=== PATIENT | male | born 1940 | race Caucasian/White ===

== ENCOUNTER 2018-05-19 08:36 | Day surgery (SDC) | payer OTHER ==
[2018-05-18 12:43] VITALS: BMI 30.9
--- NOTE | 2018-05-18 15:56 | HP ---
- Patient Scheduled date of Surgery: 05/19/18 Scheduled Surgical Procedure: Phacoemulsification and cataract extraction with PCIOL Affected Eye: Right Chief Complaint (Indication for surgery): Decreased vision affecting ADLs, Glare when driving at night - Ocular History Other Eye History: Other (none) Eye Medications: vigamox - Medical History Illnesses: Cardiac Disorders (Chest pain, SOB, NV, Valve disease) (s/p stent), Hypertension, Hypercholesterolemia Current Medications: Ambulatory Orders Aspirin 81 mg PO DAILY 05/18/18 Hydrochlorothiazide 25 mg PO DAILY 05/18/18 Metoprolol Succinate [Toprol Xl -] 50 mg PO DAILY 05/18/18 Quinapril HCl 20 mg PO DAILY 05/18/18 Rosuvastatin [Crestor -] 20 mg PO DAILY 05/18/18 Allergies/Adverse Reactions: Allergies Allergy/AdvReac Type Severity Reaction Status Date / Time codeine Allergy Verified 05/18/18 12:43 Ocular Examination - Best Corrected Visual Acuity Distance: Right eye: 20/40 Distance: Left eye: 20/50 - External/Slit Lamp Examination Abnormalities: pingueculum - Intraocular Pressure Intraocular Pressure - Right eye: 18 Intraocular Pressure-Left eye: 16 - Lens Lens: 3+ ns - Vitreous/Retina Vitreous/Retina: c:d: 0.15 m/v/p wnl - Special Examination M - Right eye: -1.00-2.00 x90 M - Left eye: -0.50- 1.00 x90 K - Right eye: 44.5/47.75 x 176 K - Left eye: 46.25/47.005 x005 AL - Right eye: 22.67 AL - Left eye: 21.87 IOL ba.00 IOL sulcus: 20.0 IOL AC: 17.0 - Impression Impression: Cataract Right Eye - Plan Plan: Phacoemulsification and cataract extraction - IOL Right eye Post-hospital care will be provided in office on: 05/20/18
[~2018-05-19 08:36] MED LIST: CIPROFLOXACIN HCL 0.3% OPHTH 2.5ML BOTTLE OP SCH; KETOROLAC TROMETHAMINE 0.5% EYE DROP 1 DROP DROPS OP SCH; PHENYLEPHRINE 2.5% OPHTH SOLN 15 ML BOTTLE OP SCH; TOBRAMYCIN/DEXAMETHASONE OPHTH. OINTMENT 1 TUBE TP ONE; TROPICAMIDE 1% OPHTH SOLN 15 ML BOTTLE OP SCH
[2018-05-19] MEDS ORDERED: ACETAMINOPHEN 325 MG TABLET (FP) PO PRN (08:50)
[2018-05-19] MEDS ORDERED: CIPROFLOXACIN HCL 0.3% OPHTH 2.5ML BOTTLE ONE (08:51)
[2018-05-19] MEDS ORDERED: TROPICAMIDE 1% OPHTH SOLN 15 ML BOTTLE ONE (08:51)
[2018-05-19] MEDS ORDERED: PHENYLEPHRINE 2.5% OPHTH SOLN 15 ML BOTTLE ONE (08:51)
[2018-05-19] MEDS ORDERED: KETOROLAC TROMETHAMINE 0.5% EYE DROP 1 DROP DROPS ONE (08:51)
[2018-05-19] MEDS ORDERED: CIPROFLOXACIN HCL 0.3% OPHTH 2.5ML BOTTLE OP ONE (09:00)
[2018-05-19] MEDS ORDERED: PHENYLEPHRINE 2.5% OPHTH SOLN 15 ML BOTTLE OP ONE (09:00)
[2018-05-19] MEDS ORDERED: TROPICAMIDE 0.5% OPHTHALMIC SOLN 15 ML BOTTLE OD ONE ×3 (09:00→09:10)
[2018-05-19] MEDS ORDERED: CIPROFLOXACIN 0.3% EYE DROPS 5 ML BOTTLE OP ONE (09:05)
[2018-05-19] MEDS ORDERED: KETOROLAC TROMETHAMINE 0.5% EYE DROP 1 DROP DROPS OP ONE (09:05)
[2018-05-19] MEDS ORDERED: PHENYLEPHRINE HCL 10% OPHTHALMIC SOLN 5 ML BOTTLE OD ONE (09:05)
[2018-05-19] MEDS ORDERED: CIPROFLOXACIN 0.3% EYE DROPS 5 ML BOTTLE OD ONE (09:10)
[2018-05-19] MEDS ORDERED: KETOROLAC TROMETHAMINE 0.5% EYE DROP 1 DROP DROPS OD ONE (09:10)
[2018-05-19] MEDS ORDERED: PHENYLEPHRINE 2.5% OPHTH SOLN 15 ML BOTTLE OD ONE (09:10)
--- NOTE | 2018-05-19 09:40 | HP ---
History & Physical Update - History History: No Change - Physical Physical: No Change - Assessment Assessment: No Change - Plan Plan: No Change (Reviewed Dr. Ambrocio's H and P from 04/21/08 . No changes)
[2018-05-19] MEDS ORDERED: KETOROLAC TROMETHAMINE 30 MG/1 ML VIAL ONE (09:47)
[2018-05-19] MEDS ORDERED: MIDAZOLAM HCL 2 MG/2 ML SINGLE DOSE VIAL ONE (09:47)
[2018-05-19] MEDS ORDERED: LIDOCAINE HCL 2% JELLY (5 ML/TUBE) TP ONE (09:52)
[2018-05-19] MEDS ORDERED: POVIDONE-IODINE 5% OPHTHALMIC PREP 30 ML SOLUTION OD ONE (09:54)
[2018-05-19] MEDS ORDERED: CHONDROITIN SU A/HYALUR SOD 1 KIT IO ONE (10:01)
[2018-05-19] MEDS ORDERED: LIDOCAINE HCL 1% PRESERVATIVE FREE - 30ML VIAL IO ONE (10:01)
[2018-05-19] MEDS ORDERED: BSS (NA/CA/MG/K) BALANCED SALT SOLUTION OPHTH SOLN 15 ML BOTTLE OD ONE (10:01)
[2018-05-19] MEDS ORDERED: EPINEPHrine/PF 1 MG/1 ML (1:1,000) AMPULE SQ ONE (10:06)
[2018-05-19] MEDS ORDERED: TOBRAMYCIN/DEXAMETHASONE OPHTH. OINTMENT 1 TUBE TP ONE (10:25)
--- NOTE | 2018-05-19 10:32 | OP ---
Ophthalmology Operative Note Pre-Operative Diagnosis: Cataract (and miosis) Affected Eye: Right Operation: Phacoemulsification and cataract extraction with PCIOL Findings: NS cataract and miosis Post-Operative Diagnosis: Same as Pre-op Otr Refrigerated Cdl Truck Driver: Juan Anesthesiologist: Asher Gonzalez Anesthesia: Topical Specimens Removed: none Estimated blood loss: < 1 cc Drains & Tubes with Location: none Operative Report Dictated: Yes
[2018-05-19] MEDS ORDERED: CHONDROITIN SU A/HYALUR SOD 1 KIT ONE (10:39)
[2018-05-19 16:52] VITALS: BP 110/56; PULSE 58; TEMP 98
--- NOTE | 2018-05-20 07:07 | OP ---
DATE OF OPERATION: 05/19/2018 PREOPERATIVE DIAGNOSIS: Nuclear sclerotic cataract, right eye, and miosis. POSTOPERATIVE DIAGNOSIS: Nuclear sclerotic cataract, right eye. PROCEDURE: Phacoemulsification and cataract extraction with insertion of posterior chamber intraocular lens, right eye. SURGEON: Hedy Crowder MD SUPERVISOR SEWING DEPARTMENT: None. ANESTHESIA: Topical. ANESTHESIOLOGIST: Asher Gonzalez MD OPERATIVE PROCEDURE: Following satisfactory intravenous sedation, the patient received 2% viscous lidocaine and was then prepped and draped in the usual sterile fashion so as to expose only the right eye. Ophthalmic Betadine was instilled into the inferior fornix, and the lashes were taped out of the surgical field. An eyelid speculum was placed into the right eye. A paracentesis was made in superior temporal clear cornea at the limbus. Nonpreserved lidocaine 1%, 0.5 mL, was injected into the anterior chamber. Then, 1 mL of dilute epinephrine 1:10,000 was injected into the eye. Viscoelastic material was instilled into the anterior chamber via the paracentesis. A 2.4-mm keratome was then used to create the main incision in temporal clear cornea at the limbus. A continuous curvilinear capsulorrhexis was performed using a cystotome and Utrata forceps. Hydrodissection of the lens cortex was performed using BSS on a cannula until the nucleus was noted to be freely rotating. The phacoemulsification tip was inserted via the main wound and used to sculpt 2 perpendicular grooves into the lens nucleus. The nucleus was cracked into 4 quadrants. Each quadrant was lifted out of the capsule into the iris plane and individually phacoemulcified. The remaining cortical material was then aspirated using the irrigation and aspiration port. The capsular bag was inflated using Provisc, and a preloaded AcrySof lens, model AU00T0, power +21.0 diopters was injected into the capsular bag and centered using a Sinskey hook. The residual viscoelastic material was removed from the anterior chamber using irrigation and aspiration. The wound edges were hydrated using BSS. The wound was tested for leakage and found to be watertight. TobraDex ointment was placed into the eye. The speculum was removed from the eye, and the eyelid was closed. Sterile dressing and shield were placed over the eye, and the patient was transferred to the recovery room in stable condition, told to follow up in 1 day. HEDY CROWDER M.D. [id number]
== END 2018-05-19 11:35 | disposition home or self-care (01) ==
LOC: JASU-SURG 08:36
PROVIDERS: ATTEND Ophthalmology
PROC: 08RJ3JZ Replacement of Right Lens with Synthetic Substitute, Percutaneous Approach (ICD-10-PCS; principal; 2018-05-19 09:30)
DX: H25.11 Age-related nuclear cataract, right eye (principal); H57.03 Miosis

== ENCOUNTER 2018-10-20 06:10 | Day surgery (SDC) | payer OTHER ==
[2018-10-19 10:27] VITALS: BMI 29.6
--- NOTE | 2018-10-19 14:32 | HP ---
- Patient Scheduled date of Surgery: 10/20/18 Scheduled Surgical Procedure: Phacoemulsification and cataract extraction with PCIOL Affected Eye: Left (with miosis) Chief Complaint (Indication for surgery): Decreased vision affecting ADLs - Ocular History Other Eye History: Other (none) Eye Medications: vigamox Previous Eye Surgery: s/p ce/pciol od - Medical History Illnesses: Cardiac Disorders (Chest pain, SOB, [place], Valve disease), Hypertension , Hypercholesterolemia Current Medications: Ambulatory Orders Aspirin 81 mg PO DAILY 05/18/18 Hydrochlorothiazide 25 mg PO DAILY 05/18/18 Metoprolol Succinate [Toprol Xl -] 50 mg PO DAILY 05/18/18 Quinapril HCl 20 mg PO DAILY 05/18/18 Rosuvastatin [Crestor -] 20 mg PO HS 05/18/18 Omeprazole 20 mg PO PRN PRN 10/19/18 Allergies/Adverse Reactions: Allergies Allergy/AdvReac Type Severity Reaction Status Date / Time codeine Allergy "passed Verified 10/19/18 10:28 out" Ocular Examination - Best Corrected Visual Acuity Distance: Right eye: 20/40- Distance: Left eye: 20/50 - External/Slit Lamp Examination Abnormalities: pingueculum - Intraocular Pressure Intraocular Pressure - Right eye: 16 Intraocular Pressure-Left eye: 16 - Lens Lens: 3+NS - Vitreous/Retina Vitreous/Retina: C:D 0.15 mottled, v wmnl, asteroid hyalosis - Special Examination M - Right eye: +0.75-2.50 x 90 M - Left eye: -0.50- 1.00 x 90 K - Right eye: 44.75/47.50 x 175 K - Left eye: 46.50/47.75 x 005 AL - Right eye: 22.94 AL - Left eye: 21.58 IOL bag: +23.5 IOL sulcus: +22.0 IOL AC: +19.5 - Impression Impression: Cataract Left Eye (miosis) - Plan Plan: Phacoemulsification and cataract extraction - IOL Left eye (denverayugan ring )
[~2018-10-20 06:10] MED LIST changes: -CIPROFLOXACIN HCL 0.3% OPHTH 2.5ML BOTTLE OP SCH; -KETOROLAC TROMETHAMINE 0.5% EYE DROP 1 DROP DROPS OP SCH; -PHENYLEPHRINE 2.5% OPHTH SOLN 15 ML BOTTLE OP SCH; -TROPICAMIDE 1% OPHTH SOLN 15 ML BOTTLE OP SCH
[2018-10-20] MEDS ORDERED: PHENYLEPHRINE 2.5% OPHTH SOLN 15 ML BOTTLE ONE (06:31)
[2018-10-20] MEDS ORDERED: CIPROFLOXACIN HCL 0.3% OPHTH 2.5ML BOTTLE ONE (06:31)
[2018-10-20] MEDS ORDERED: TROPICAMIDE 1% OPHTH SOLN 15 ML BOTTLE ONE (06:32)
[2018-10-20] MEDS ORDERED: KETOROLAC TROMETHAMINE 0.5% EYE DROP 1 DROP DROPS ONE (06:32)
[2018-10-20] MEDS: PHENYLEPHRINE 2.5% OPHTH SOLN 15 ML BOTTLE OP SCH ×3 (06:35→07:04)
[2018-10-20] MEDS: CIPROFLOXACIN HCL 0.3% OPHTH 2.5ML BOTTLE OP SCH ×3 (06:35→07:04)
[2018-10-20] MEDS: TROPICAMIDE 1% OPHTH SOLN 15 ML BOTTLE OP SCH ×3 (06:35→07:05)
[2018-10-20] MEDS: KETOROLAC TROMETHAMINE 0.5% EYE DROP 1 DROP DROPS OP SCH ×3 (06:35→07:04)
[2018-10-20 06:40] VITALS: TEMP 98.2
[2018-10-20] MEDS ORDERED: ACETAMINOPHEN 325 MG TABLET (FP) PO PRN (06:45)
[2018-10-20] MEDS ORDERED: TOBRAMYCIN/DEXAMETHASONE OPHTH. OINTMENT 1 TUBE ONE (07:07)
[2018-10-20] MEDS ORDERED: CHONDROITIN SU A/HYALUR SOD 1 KIT ONE (07:08)
[2018-10-20] MEDS ORDERED: POVIDONE-IODINE 5% OPHTHALMIC PREP 30 ML SOLUTION ONE (07:12)
[2018-10-20] MEDS ORDERED: TETRACAINE 0.5% OPHTH SOLN 2 ML BOTTLE ONE (07:12)
[2018-10-20] MEDS ORDERED: EPINEPHrine/PF 1 MG/1 ML (1:1,000) AMPULE ONE (07:12)
[2018-10-20] MEDS ORDERED: BSS (NA/CA/MG/K) BALANCED SALT SOLUTION OPHTH SOLN 15 ML BOTTLE ONE (07:12)
[2018-10-20] MEDS ORDERED: LIDOCAINE HCL/PF 1% SDV 5ML VIAL ONE (07:12)
--- NOTE | 2018-10-20 07:22 | HP ---
History & Physical Update - History History: No Change - Physical Physical: No Change - Plan Plan: No Change (H and P reviewed from10/10/[address] Adrian vasquez cha)
[2018-10-20] MEDS ORDERED: MIDAZOLAM HCL 2 MG/2 ML SINGLE DOSE VIAL ONE (07:36)
[2018-10-20] MEDS ORDERED: TETRACAINE 0.5% OPHTH SOLN 2 ML BOTTLE OS ONE (07:39)
[2018-10-20] MEDS ORDERED: POVIDONE-IODINE 5% OPHTHALMIC PREP 30 ML SOLUTION OS ONE (07:40)
[2018-10-20] MEDS ORDERED: EPINEPHrine/PF 1 MG/1 ML (1:1,000) AMPULE SQ ONE ×2 (07:49→07:59)
[2018-10-20] MEDS ORDERED: CHONDROITIN SU A/HYALUR SOD 1 KIT IO ONE (07:49)
[2018-10-20] MEDS ORDERED: TRYPAN BLUE 0.5 ML DISP.SYRIN IO ONE (07:49)
[2018-10-20] MEDS ORDERED: BSS (NA/CA/MG/K) BALANCED SALT SOLUTION OPHTH SOLN 15 ML BOTTLE OS ONE (07:49)
[2018-10-20] MEDS ORDERED: LIDOCAINE HCL 1% PRESERVATIVE FREE - 30ML VIAL IO ONE (07:49)
[2018-10-20] MEDS ORDERED: TOBRAMYCIN/DEXAMETHASONE OPHTH. OINTMENT 1 TUBE TP ONE (08:31)
--- NOTE | 2018-10-20 08:34 | OP ---
Ophthalmology Operative Note Pre-Operative Diagnosis: Cataract (and miosis) Affected Eye: Left Operation: Phacoemulsification and cataract extraction with PCIOL Findings: mature cataract and miosis Post-Operative Diagnosis: Other (mature cataract left eye) Strand Buncher Fine Wire: None Anesthesiologist: Shazia Richards MD Anesthesia: Topical Specimens Removed: none Estimated blood loss: <1 cc Drains & Tubes with Location: none Operative Report Dictated: Yes
--- NOTE | 2018-10-20 09:07 | OP ---
DATE OF OPERATION: DATE OF DICTATION: 10/20/2018 PREOPERATIVE DIAGNOSIS: Nuclear sclerotic cataract left eye and miosis. POSTOPERATIVE DIAGNOSIS: Mature cataract and miosis. PROCEDURE PERFORMED: Phacoemulsification and cataract extraction with insertion of posterior chamber intraocular lens, left eye. SURGEON: Hedy Crowder MD PARATRANSIT OPERATOR: None. ANESTHESIA: Topical. ANESTHESIOLOGIST: Shazia Richards M.D. OPERATIVE PROCEDURE: The patient received tetracaine eye drops and was gently sedated and prepped and draped in the usual sterile fashion so as to expose only the left eye. Ophthalmic Betadine was instilled into the inferior fornix and lashes were taped out of the surgical field. An eyelid speculum was placed into the left eye. Paracentesis was made in inferior temporal clear cornea at the limbus. Then 0.5 mL of nonpreserved lidocaine 1% was injected into the anterior chamber and then 1 mL of dilute epinephrine 1:10,000 was injected into the anterior chamber to improve pupillary dilation. Viscoelastic was then instilled into the anterior chamber via the paracentesis. A 2.4-mm keratome blade was then used to create the main incision in temporal clear cornea at the limbus. Additional Viscoat was injected into the anterior chamber and deep to the iris, and a Malyugin ring was inserted into the eye to improve pupillary dilation. A continuous curvilinear capsulorrhexis was performed using a cystotome and Utrata forceps. Hydrodissection of the lens cortex was performed using BSS on a cannula until the nucleus was noted to be freely rotating. The phacoemulsification tip was then inserted via the main wound and used to scope 2 perpendicular grooves into the lens nucleus. The nucleus was cracked into 4 quadrants. Each quadrant was lifted out of the capsule into the iris plane and individually phacoemulsified. The remaining cortical material was then aspirated using the irrigation/aspiration port. The capsular bag was inflated using Provisc and a preloaded AcrySof lens model AU00T0 power +23.0 diopters was injected into the capsular bag. It was centered using a Sinskey hook. The Malyugin ring was then disinserted using a Adam hook and the Malyugin ring residential driver to disinsert the ring. The residual viscoelastic material was removed from the anterior chamber using irrigation and aspiration. The wound edges were hydrated using BSS. The wound was tested for leakage and was found to be slightly leaky. Therefore, one 10-0 nylon suture was placed over the wound. Again, the wound was tested. The wound was found to be watertight. Tobradex ointment was placed in the eye, and the speculum was removed from the eye, and the eyelid was closed. A sterile dressing and shield were placed over the eye. The patient was transferred to the recovery room in stable condition, told to follow up in 1 day. HEDY CROWDER M.D. [id number]
[2018-10-20 10:47] VITALS: BP 109/68; PULSE 53
== END 2018-10-20 09:30 | disposition home or self-care (01) ==
LOC: JASU-SURG 06:10
PROVIDERS: ATTEND Ophthalmology
PROC: 08RK3JZ Replacement of Left Lens with Synthetic Substitute, Percutaneous Approach (ICD-10-PCS; principal; 2018-10-20 07:30)
DX: H26.9 Unspecified cataract (principal); H57.03 Miosis